=== PATIENT | female | born 1965 | race Caucasian/White ===

== ENCOUNTER 2016-12-25 12:11 | Emergency (ER) | payer BC ==
--- NOTE | 2016-12-25 12:24 | ERNOTE ---
Medical Problem HPI - Narrative Date of Service: 12/25/16 - General Chief Complaint: Foreign Body Time Seen by Provider: 12/25/16 12:24 Source: patient Exam Limitations: no limitations - Immun/Allergies/Home Medications Immunizations: IMMUNIZATION HX Immunizations Up to Date Yes History of Influenza Vaccine No Hx Pneumococcal Vaccination No Allergies/Adverse Reactions: Allergies No Known Allergies Allergy (Unverified 12/25/16 12:17) Home Medications: HOME MEDICATIONS Hydrochlorothiazide 12.5 mg PO 12/25/16 [Last Taken Unknown] Pantoprazole Sodium [Protonix] 40 mg PO 12/25/16 [Last Taken Unknown] - History of Present History Narrative: Presents with c/o FB sensation in her throat/esophagus. Pt claims it started while eating some bulgarian fries. She reports several episodes in last five years , but never requiring EGD or esophageal dilation. Was placed on protonix by her GI specialist. Today, while she is able to swallow, she continues to feel said sensation. Date (Duration): 12/25/16 Timing: constant Severity: moderate Modifying Factors - (Worsens): Present: eating - or swallowing. Review of Systems - Review of Systems Constitutional: Present: no symptoms reported EYE: Present: no symptoms reported ENT: Present: See HPI Respiratory: Present: no symptoms reported Cardiology: Present: no symptoms reported Gastrointestinal/Abdominal: Present: See HPI Genitourinary: Present: no symptoms reported Musculoskeletal: Present: no symptoms reported Skin: Present: no symptoms reported Neurological: Present: no symptoms reported Endocrine: Present: no symptoms reported Hematologic/Lymphatic: Present: no symptoms reported Psych: Present: no symptoms reported All Other Systems: All systems neg except as marked - Patient's Past Medical History Patient History - Medical: Other Patient History - Cardiac/Respiratory: History Unknown Patient History - Cancer: No Hx of Cancer Patient History - Surgical Procedures: , Hysterectomy Patient History - Other: None LMP (females 10-50): other - Social History Living Situations: home Psych History: No pertinent hx - Immunizations Immunizations Up to Date: Yes Hx Pneumococcal Vaccination: No History of Influenza Vaccine: No Physical Exam - Physical Exam General Appearance: Present: wd/wn, alert, no apparent distress Ears, Nose, Throat: Present: normal ENT inspection, normal pharynx, other - no FB. Absent: pharyngeal erythema, pharyngeal swelling, tonsillar exudate Neck: Present: normal inspection, nontender, supple Respiratory: Present: no respiratory distress, normal breath sounds Cardiovascular/Chest: Present: regular rate, rhythm, no murmur Gastrointestinal/Abdominal: Present: normal bowel sounds, nontender, nondistended, soft, no organomegaly Neurological Exam: Present: alert, oriented, normal mood/affect Skin Exam: Present: normal color, warm/dry ED Progress - Vital Signs Patient's Vital Signs:: I have reviewed the patient's vital signs. Vital Signs: Vital Signs 12/25/16 12:12 Temperature 36.7 C Pulse Rate 90 Respiratory 16 Rate - Progress/Reassessment Chief Complaint: Foreign Body Progress:: Improved Plan - Plan Plan: Case discussed with general surgeon, Dr. Deleon; willing to do a upper GI scope later in the week. However, pt decided to f/u with her GI specialist for scope. Departure - Departure Clinical Impression: Sensation of foreign body in esophagus GERD (gastroesophageal reflux disease) Qualifiers: Esophagitis presence: esophagitis presence not specified Qualified Code(s): K21.9 - Gastro-esophageal reflux disease without esophagitis Disposition: Home self-care Instructions: Swallowed Foreign Body, Adult, [id number] Additional Instructions: Follow up with your GI specialist LOUANN.
[2016-12-25] MEDS ORDERED: MAG HYDROX/ALUMINUM HYD/SIMETH 30 ML UDC PO ONE (12:37)
[2016-12-25] MEDS ORDERED: LIDOCAINE HCL 20 ML UDC PO ONE (12:37)
[2016-12-25] MEDS ORDERED: BELLADONNA ALKALOIDS/PHENOBARB 60 ML BTL PO ONE (12:37)
--- OUTSIDE RECORDS SUMMARY | 2016-12-25 13:14 | XMS REPORT | Continuity of Care Document ---
:1965 Author Organization [facility] [place] [address] Care Team Providers Name Role Phone Provider, None Per Patient Primary Care Provider Unavailable Source Comments This disclosure is being made pursuant to the [employer] program and maynot contain all information available regarding this patient.[facility] Active Allergies and Adverse Reactions No Known Allergies Current Medications Be aware that medications may not be up to date as of this document. Alwaysverify current medications with the patient. Prescription Sig. Disp. Refills Start End Date Status Date pantoprazole (PROTONIX) Take 40 mg Active 40 MG tablet by mouth daily. hydrochlorothiazide Take 1 90 tablet 3 Active (HYDRODIURIL) 12.5 MG tablet by 7 tablet mouth daily. vitamin D, Take 1 12 capsule 0 Active Ergocalciferol, 69167 capsule by 7 units capsule mouth once a week. hydrOXYzine (ATARAX) 25 Take 1 60 tablet 0 Active MG tablet tablet by 7 mouth 2 (two) times daily as needed for Anxiety. clarithromycin (BIAXIN) Take 1 20 tablet 0 12/04/19 Discontinued 500 MG tablet tablet by 6 17 mouth 2 (two) times daily. oseltamivir (TAMIFLU) 75 Take 1 10 capsule 0 12/09/19 MG capsule capsule by 7 17 mouth 2 (two) times daily. Hospital, Clinic, or Other Ordered Dose Route Frequency Start Date End Date Status Facility Administered Medication methylPREDNISolone acetate 80mg IM Once 12/04/2016 12/04/2016 Ended (DEPO-MEDROL) injection Active Problems No known active problems Most Recent Encounters Date Type Specialty Providers Description 12/19/2016 Telephone Internal Medicine Loretta Claudio Dizziness; Anxiety Emanuel, RN 12/18/2016 Telephone Gastroenterology Delio Baldwin II, DO 12/17/2016 Office Visit Internal Medicine Damaso Guerra MD RUQ pain ( Primary Dx); Visit for screening mammogram; Essential hypertension; Special screening for malignant neoplasms, colon; Vitamin D insufficiency 12/04/2016 Office Visit Urgent Care Judy Jc Veronica, Influenza (Primary Dx) DO 09/27/2016 Data Import Immunizations Name Dates Previously Given Next Due Td, absorbed 02/16/1999 Social History Tobacco Use Types Packs/Day Years Used Date Never Smoker Smokeless Tobacco: Never Used Last Filed Vital Signs Vital Sign Reading Time Taken Blood Pressure 138/88 12/17/2016 3:37 PM [facility] Pulse 80 12/17/2016 3:37 PM [facility] Temperature 36.5 C (97.7 F) 12/17/2016 3:37 PM [facility] Respiratory Rate 18 12/17/2016 3:37 PM [facility] Height 1.6 m (5' 3") 12/17/2016 3:37 PM [facility] Weight 90.719 kg (200 lb) 12/17/2016 3:37 PM [facility] Body Mass Index 35.44 12/17/2016 3:37 PM [facility] Oxygen Saturation 98% 12/17/2016 3:37 PM [facility] Plan of Care Patient Goal Type Goal Blood Pressure Blood Pressure below 140/90 Date Type Specialty Providers Description 12/31/2016 Appointment Radiology Damaso Guerra MD [address] [place] [address] [phone] (Fax) 12/31/2016 Appointment Radiology Damaso Guerra MD [address] [place] [phone] (Fax) 01/07/2017 Appointment Internal Medicine Damaso Guerra MD [address] [place] [phone] (Fax) Health Maintenance Due Date Last Done Comments Pap Smear 1988 Tetanus/Pertussis (2 - Td) 02/16/2009 02/16/1999 Influenza Immunization (#1) 2016 Results from Last 3 Months Lipase (12/18/2016 7:10 AM) Component Value Range Lipase 42 8-78 U/L Narrative Testing performed at [facility], [address] [place] [address].Record Producer Kavon Parrish MD Amylase (12/18/2016 7:10 AM) Component Value Range Amylase 44 25-125 U/L Narrative Testing performed at [facility], [address] [place] [address].Record Producer Kavon Parrish MD 25 Hydroxy Vitamin D (12/18/2016 7:10 AM) Component Value Range Vitamin D, 25-Hydroxy 23.2(L)Comment: >29.9 ng/ml Deficient <20.0 ng/ml Insufficient 20.0-29.9ng/ml Sufficient > or=30 ng/ml Clinical Correlation Essential Narrative Testing performed at [facility], [address] [place] [address].Record Producer Kavon Parrish MD TSH (12/18/2016 7:10 AM) Component Value Range TSH 1.046 0.350-4.940 uIU/mL Narrative Testing performed at [facility], [address] [place] [address].Record Producer Kavon Parrish MD Lipid panel (12/18/2016 7:10 AM) Component Value Range Cholesterol 226(H)Comment:Cholesterol borderline high, 200- 0-200 mg/dL 239 mg/dl. Clinical correlation is essential. Triglycerides 204(H) 0-200 mg/dL HDL Cholesterol 47(L) >60 mg/dL LDL Calculated 138.2Comment: mg/dL <100Optimal 100-129 Near Optimal/Above Optimal 130-159 Borderline High 160-189 High >[id number] High Cholesterol/HDL Ratio 4.8Comment:HDL:Chol ratio Average Risk 1:4.4-1:7.0, Clinical Correlation essential. Narrative Testing performed at [facility], [address] [place] [address].Record Producer Kavon Parrish MD Comprehensive metabolic panel (12/18/2016 7:10 AM) Component Value Range Glucose 101(H)Comment: 60-100 mg/dL Fasting Plasma Glucose (FPG)<100 MG/DL Impaired Fasting Glucose (IFG) 100-125 MG/DL Provisional Diagnosis of Diabetes Mellitus > ve=460 MG/DL (Diagnosis Must Be Confirmed) BUN, Blood 9 7-19 mg/dL Creatinine 0.7 0.6-1.2 mg/dL Glomerular Filtration Rate 103 >90 mL/min/1.73mm2 Estimate Glomerlular Filtration Rate 119Comment:The estimated GFR >90 mL/min/1.73mm2 Estimate- has not been validated for women or patients with serious comorbid conditions, or with extremes of body size, muscle mass, or nutritional status. Calcium 9.0 8.4-10.2 mg/dL Sodium 137 136-145 mmol/L Potassium 3.7 3.5-4.6 mmol/L Chloride 104 99-111 mmol/L CO2 26.9 21.0-32.0 mmol/L Albumin 3.4(L) 3.5-5.0 g/dL Total Protein 7.1 6.1-8.0 g/dL Bilirubin Total 0.4 0.2-1.2 mg/dL Alkaline Phosphatase 62 40-150 U/L AST 12 5-34 U/L ALT 14 0-55 u/L Narrative Testing performed at [facility], [address] [place] [address].Record Producer Kavon Parrish MD CBC (Hemogram) (12/18/2016 7:10 AM) Component Value Range WBC 7.6 3.1-11.0 x10^3/uL RBC 4.26 3.60-5.17 x10^6/uL Hemoglobin 13.1 11.1-15.3 g/dL Hematocrit 40.0 33.7-46.0 % MCV 93.9 81.0-98.0 fL MCH 30.8 27.2-33.3 pg MCHC 32.8 31.7-35.6 g/dL RDW 12.9 10.8-14.6 % SD-RDW 43.3 37.0-50.4 fL Platelets 319 147-370 x10^3/uL MPV 10.3 9.1-12.1 fL Narrative Testing performed at [facility], [address] [place] [address].Record Producer Kavon Parrish MD
[2016-12-25 14:07] VITALS: BP 151/90
== END 2016-12-25 14:09 | disposition home or self-care (01) ==
LOC: ER 12:11
DX: R09.89 Other specified symptoms and signs involving the circulatory and respiratory systems (principal); K21.9 Gastro-esophageal reflux disease without esophagitis